=== PATIENT | female | born 1975 | race Caucasian/White ===

== ENCOUNTER → 2020-01-12 | Day surgery (SDC) | payer OTHER ==
[~2020-01-12] VITALS: Ht 177.8 cm; Wt 158.8 kg
[~2020-01-12] MED LIST: ALBUAER3 IN; ALLO300T2 PO; ASCO100076 PO; BUPIVACAINE 0.25% INJ 50ML VIAL ONE; CHOL200021 PO; DexAMETHasone SOD PHOS 10MG/1ML VIAL INJ IV ONE; DexAMETHasone SOD PHOS 10MG/1ML VIAL INJ ONE; FLUT100I IN; HYDROmorphone HCL 2 MG/ML VL IV PRN; LIDOCAINE 1% HCL (LOCAL ANESTH.) INJ 20ML MDV ONE; LIDOCAINE W/ EPINEPHRINE 1% 20ML VIAL ONE; LOSA-39 PO; MAGN250T8 PO; METO1TAB9 PO; METOCLOPRAMIDE HCL 5MG/ml INJ 2ml VIAL IV PRN; MIDAZOLAM HCL 1MG/1ML-2 ML VIAL ONE; MORPHINE SULFATE 4 MG/ML SYR/VIAL IV PRN; MULT-1018 PO; OMEG100078 PO; ONDANSETRON HCL 4 MG/2 ML VIAL ONE; PROPOFOL 10 MG/ML 20 ML IV ONE; SODIUM CHLORIDE LOCK 10 ML ONE; ceFAZolin 1GM/50ML 100 ML IV ONE; fentaNYL CITRATE 100 MCG/2 ML VL ONE
[2020-01-12 11:57] VITALS: BP 133/77
== END | disposition home or self-care (01) ==
LOC: SUR 07:32
PROVIDERS: ATTEND Podiatrist Foot & Ankle Surgery
DX: M20.11 Hallux valgus (acquired), right foot (principal); M20.5X1 Other deformities of toe(s) (acquired), right foot; M20.41 Other hammer toe(s) (acquired), right foot; E66.01 Morbid (severe) obesity due to excess calories; I10 Essential (primary) hypertension; J44.9 Chronic obstructive pulmonary disease, unspecified; G47.33 Obstructive sleep apnea (adult) (pediatric); Z88.0 Allergy status to penicillin; Z20.828 Contact with and (suspected) exposure to other viral communicable diseases; Z68.43 Body mass index [BMI] 50.0-59.9, adult; Z88.2 Allergy status to sulfonamides; Z88.1 Allergy status to other antibiotic agents; Z98.890 Other specified postprocedural states; Z79.899 Other long term (current) drug therapy
CPT/HCPCS: 28230; 28270; 28285; 28299; 88304; 88311; C1713; J0690; J1100; J2001; J2250; J2405; J2704; J3010; J3490; U0003